=== PATIENT | male | born 1940 | race Caucasian/White ===

== ENCOUNTER 2019-04-11 06:15 | Day surgery (SDC) | payer MEDICARE ==
[2019-04-09 09:27] VITALS: BMI 32.8
[2019-04-11] MEDS ORDERED: Fentanyl 100 MCG/2 ML VIAL ONE ×3 (06:54→10:19)
[2019-04-11] MEDS ORDERED: HYDROcodone/Acetaminophen 5/325 mg Tablet ONE ×6 (11:57→12:32)
--- NOTE | 2019-04-11 12:53 | OP ---
DATE OF PROCEDURE: 04/11/2019 UPPER LEATHER CUTTER: Irena Carroll PA-C PROCEDURE PERFORMED: L4-L5 laminectomy and left L4-L5 diskectomy. DESCRIPTION OF PROCEDURE: The patient was brought to the operating room and intubated. He was rolled in the prone position on gel-filled chest rolls. An incision was made exposing L4 and L5 and the level was confirmed by x-ray. We performed complete L5 and inferior L4 laminectomy and completely decompressing the neural elements. Beneath left L4-L5, we did identify some extruded disk material that was also removed and complete decompression was secured. The wound was then extensively irrigated and MAC hemostasis was secured. Vancomycin powder was applied and the wound was closed in anatomic layers. Job ID: [id number]
[2019-04-11] MEDS ORDERED: Glycopyrrolate 0.2 MG/ML 5 ML SYRINGE ONE (16:34)
[2019-04-11] MEDS ORDERED: Metoclopramide HCl 10 MG/2 ML VIAL ONE (16:34)
[2019-04-11] MEDS ORDERED: Lidocaine 2% PF 5 ML VIAL ONE (16:34)
[2019-04-11] MEDS ORDERED: Rocuronium Bromide 10 MG/ML (10ML VIAL) ONE (16:34)
[2019-04-11] MEDS ORDERED: Ondansetron PF 4 MG/2 ML Vial ONE (16:34)
[2019-04-11] MEDS ORDERED: Dexamethasone 20 MG/5 ML VIAL ONE (16:34)
[2019-04-11] MEDS ORDERED: PROPOFOL 200 MG/20 ML VIAL ONE (16:34)
== END 2019-04-11 13:20 | disposition home or self-care (01) ==
LOC: SDC 06:15
PROVIDERS: ATTEND Neurological Surgery
PROC: 01NB0ZZ Release Lumbar Nerve, Open Approach (ICD-10-PCS; principal; 2019-04-11)
PROC: 0ST20ZZ Resection of Lumbar Vertebral Disc, Open Approach (ICD-10-PCS; 2019-04-11)
DX: M48.062 Spinal stenosis, lumbar region with neurogenic claudication (principal)
CPT/HCPCS: 76000; J0131; J0690; J3010; J3370

== ENCOUNTER 2024-07-15 13:45 | Outpatient (CLI) | payer MEDICARE | END 2024-07-15 13:46 | disposition home or self-care (01) | LOC: RAD 13:45 | PROVIDERS: ATTEND Neurological Surgery | DX: M48.062 Spinal stenosis, lumbar region with neurogenic claudication (principal); M47.816 Spondylosis without myelopathy or radiculopathy, lumbar region; M41.9 Scoliosis, unspecified | CPT/HCPCS: 72100 ==

== ENCOUNTER 2024-08-25 08:38 | Outpatient (CLI) | payer MEDICARE ==
[2024-08-25 09:56] LABS: #Basophils Less than 0.03 10x3/uL (0.0-0.2); %Basophils 0.5 % (0.0-1.0); %Eosinophils 3.7 % (0.0-10.0); %Lymphocytes 38.1 % (21.0-51.0); %Monocytes 9.3 % (0.0-10.0); %Neutrophils 48.2 % (42.0-75.0); Hematocrit 40.5 % (42.0-52.0); Hemoglobin 13.5 g/dL (14.0-18.0); Mean Corpuscular HGB CONC 33.3 g/dL (32.0-36.0); Mean Corpuscular Hemoglobin 30.1 pg (27.0-31.0); Mean Corpuscular Volume 90.2 fL (78.0-98.0); Mean Platelet Volume 9.7 fL (7.4-10.4); Platelet Count 142 10x3/uL (130-400); RBC Distribution Width 14.6 % (11.5-14.5); Red Blood Cell (RBC) Count 4.49 mill/uL (4.70-6.10)
[2024-08-25 10:23] LABS: Anion Gap 15 mmol/L (10-20); BUN (Urea Nitrogen) 19 mg/dL (8.4-25.7); Calc. Creatinine Clearance 0 mL/min (70-130); Calcium 9.4 mg/dL (7.8-10.44); Carbon Dioxide 24 mmol/L (23-31); Chloride 106 mmol/L (98-107); Estimated GFR 69; Glucose 240 mg/dL (83-110); Potassium 4.3 mmol/L (3.5-5.1); Sodium 141 mmol/L (136-145)
== END 2024-08-25 08:39 | disposition home or self-care (01) ==
LOC: LABBT 08:38
PROVIDERS: ATTEND Neurological Surgery
DX: Z01.812 Encounter for preprocedural laboratory examination (principal); M48.062 Spinal stenosis, lumbar region with neurogenic claudication
CPT/HCPCS: 80048; 85025

== ENCOUNTER 2024-09-01 08:35 | Inpatient (IN) | payer MEDICARE ==
[2024-08-25 08:56] VITALS: BMI 32.8
[2024-09-01] MEDS ORDERED: PROPOFOL 20 ML ONE (09:43)
[2024-09-01] MEDS ORDERED: fentaNYL PF 100 MCG/2 ML SYRINGE ONE (09:43)
[2024-09-01] MEDS ORDERED: Ketamine In 0.9 % NaCl 50 MG/5 ML SYRINGE ONE (09:45)
[2024-09-01] MEDS ORDERED: Vancomycin 1 GM VIAL ONE (10:06)
[2024-09-01] MEDS ORDERED: Ondansetron PF 4 MG/2 ML Vial IVP PRN (10:16)
[2024-09-01] MEDS ORDERED: Acetaminophen/Codeine 30-300mg Tablet PO PRN (10:16)
[2024-09-01] MEDS ORDERED: Acetaminophen 325 MG TAB PO PRN (10:16)
[2024-09-01] MEDS ORDERED: Cyclobenzaprine 10 MG TAB PO PRN (10:16)
[2024-09-01] MEDS ORDERED: Morphine 2 MG/ML VIAL SLOW IVP PRN (10:16)
[2024-09-01] MEDS ORDERED: diphenhydrAMINE 50 MG/ML VIAL IVP PRN (10:16)
[2024-09-01] MEDS ORDERED: Milk Of Magnesia 30 ML UDCUP PO PRN (10:16)
[2024-09-01] MEDS ORDERED: traMADol HCl 50 MG TAB PO PRN ×2 (10:16)
[2024-09-01] MEDS ORDERED: CEFAZOLIN 2 GM VIAL ONE (10:24)
[2024-09-01] MEDS ORDERED: Rocuronium Bromide 10 MG/ML (10ML VIAL) ONE (11:06)
[2024-09-01] MEDS ORDERED: Lidocaine 1% PF 5 ML VIAL ONE (11:06)
[2024-09-01] MEDS ORDERED: PHENYLEPHRINE-NS 100 MCG/ML 10 ML SYRINGE ONE (11:06)
[2024-09-01] MEDS ORDERED: Ondansetron PF 4 MG/2 ML Vial ONE (11:25)
[2024-09-01] MEDS ORDERED: Dexamethasone 20 MG/5 ML VIAL ONE (11:25)
[2024-09-01] MEDS ORDERED: Glycopyrrolate 0.2 MG/ML 5 ML SYRINGE ONE (11:39)
[2024-09-01] MEDS ORDERED: SUGAMMADEX SODIUM 200 MG/2 ML VIAL ONE (12:09)
[2024-09-01] MEDS ORDERED: fentaNYL 50 mcg/mL 1 mL Vial ONE ×3 (12:53→13:38)
[2024-09-01] MEDS ORDERED: HYDROmorphone 0.5 MG/0.5 ML SYRINGE ONE (13:58)
[2024-09-01] MEDS ORDERED: Gabapentin 300 MG CAP PO SCH (15:00)
[2024-09-01] MEDS: Sodium Chloride 0.9% 1,000 ML IV SCH (15:26)
[2024-09-01] MEDS: Gabapentin 300 MG CAP PO SCH (16:35)
[2024-09-01] MEDS: Gabapentin 100 MG CAP PO SCH (16:36)
[2024-09-01] MEDS: Acetaminophen/Codeine 30-300mg Tablet PO PRN (16:36)
[2024-09-01] MEDS: CEFAZOLIN 2 GM in Sodium Chloride 0.9% 100 ML IVPB SCH (17:38)
[2024-09-01] MEDS: Furosemide 20 MG TAB PO SCH (21:11)
[2024-09-01] MEDS: Sacubitril 49 MG/Valsartan 51 MG TABLET PO SCH (21:12)
[2024-09-01] MEDS: Pramipexole Di-HCl 1 MG TAB PO SCH (21:12)
[2024-09-02] MEDS: Levothyroxine Sodium 50 MCG TAB PO SCH (05:50)
[2024-09-02] MEDS: PARoxetine 20 MG TAB PO SCH (08:36)
[2024-09-02] MEDS: Carvedilol 3.125 MG TAB PO SCH (08:36)
[2024-09-02] MEDS: Potassium Chloride 10 MEQ TAB PO SCH (08:38)
[2024-09-02] MEDS: metFORMIN 500 MG TAB PO SCH (08:38)
[2024-09-02] MEDS: Empagliflozin 10 MG TAB PO SCH (08:52)
[2024-09-02] MEDS: FLU (Fluad Triv) TS24-25 (65UP)/MF59C/PF 45 MCG/0.5 ML Syringe IM ONE (18:50)
[2024-09-02 21:26] LABS: ALT (SGPT) 20 U/L (8-55); AST (SGOT) 27 U/L (5-34); Albumin 3.7 g/dL (3.4-4.8); Alkaline Phosphatase 67 U/L (40-110); Anion Gap 14 mmol/L (10-20); BUN (Urea Nitrogen) 25 mg/dL (8.4-25.7); Bilirubin, Total 0.8 mg/dL (0.2-1.2); Calc. Creatinine Clearance 82 mL/min (70-130); Calcium 8.7 mg/dL (7.8-10.44); Carbon Dioxide 23 mmol/L (23-31); Chloride 105 mmol/L (98-107); Estimated GFR 70; Globulin 3.3 g/dL (2.4-3.5); Glucose 245 mg/dL (83-110); Magnesium 2.3 mg/dL (1.6-2.6); Potassium 3.9 mmol/L (3.5-5.1); Sodium 138 mmol/L (136-145)
[2024-09-02] MEDS ORDERED: Senokot S 8.6-50 MG TAB PO PRN (22:27)
[2024-09-02] MEDS ORDERED: Sodium Chloride 0.9% 500 ML IV SCH (22:30)
[2024-09-03 05:11] LABS: #Basophils Less than 0.03 10x3/uL (0.0-0.2); %Basophils 0.3 % (0.0-1.0); %Eosinophils 3.3 % (0.0-10.0); %Lymphocytes 24.9 % (21.0-51.0); %Monocytes 7.6 % (0.0-10.0); %Neutrophils 63.6 % (42.0-75.0); Hematocrit 35.3 % (42.0-52.0); Hemoglobin 11.8 g/dL (14.0-18.0); Mean Corpuscular HGB CONC 33.4 g/dL (32.0-36.0); Mean Corpuscular Hemoglobin 30.4 pg (27.0-31.0); Mean Platelet Volume 9.9 fL (7.4-10.4); Platelet Count 125 10x3/uL (130-400); Red Blood Cell (RBC) Count 3.88 mill/uL (4.70-6.10)
[2024-09-03] MEDS ORDERED: Insulin Regular, Human 100 UNIT/ML 10 ML VIAL SC PRN (08:20)
[2024-09-03] MEDS ORDERED: Dextrose 5% in Water 1,000 ML IV PRN (08:20)
[2024-09-03] MEDS ORDERED: Glucagon 1 MG/ML KIT IM PRN (08:20)
[2024-09-03] MEDS ORDERED: Dextrose 50% Abboject 50 ML SYRINGE SLOW IVP PRN (08:20)
[2024-09-03] MEDS: PARoxetine 20 MG TAB PO SCH (09:01)
[2024-09-03] MEDS: Polyethylene Glycol 3350 17 GM Packet PO SCH (09:02)
[2024-09-03] MEDS: DorzolamidE/Timolol 2%/0.5% Ophth Soln 10 ml Bottle R EYE SCH (09:03)
[2024-09-03] MEDS: Mag-Al 1200 mg/1200 mg/30 ML UDCUP PO PRN (13:33)
[2024-09-03] MEDS: Insulin Regular, Human 100 UNIT/ML 10 ML VIAL SC PRN (13:35)
[2024-09-03] MEDS: Pramipexole Di-HCl 1 MG TAB PO SCH (16:11)
[2024-09-03] MEDS: metFORMIN 500 MG TAB PO SCH (17:30)
[2024-09-03] MEDS: Insulin Glargine 30 UNITS/0.3 ML VIAL SC SCH (17:30)
[2024-09-03] MEDS: Cholecalciferol 1,000 UNITS (25 MCG) TAB PO SCH (20:53)
[2024-09-03] MEDS: Cyanocobalamin (Vitamin B-12) 1,000 MCG TAB PO SCH (20:54)
[2024-09-04] MEDS: CEFAZOLIN 2 GM in Sodium Chloride 0.9% 100 ML IVPB SCH (05:27)
[2024-09-04] MEDS ORDERED: Cefepime 2 GM in Sodium Chloride 0.9% 100 ML IVPB SCH (06:00)
[2024-09-04] MEDS: Carvedilol 3.125 MG TAB PO SCH (08:37)
[2024-09-04 10:24] VITALS: BP 124/75; TEMP 97.3
== END 2024-09-04 12:30 | disposition home or self-care (01) | DRG 519 ==
LOC: SDC 08:35 → SURG B 14:52 → OBSVTOIN 09-03 08:28
PROVIDERS: ADMIT Neurological Surgery; ATTEND Neurological Surgery
PROC: 01NB0ZZ Release Lumbar Nerve, Open Approach (ICD-10-PCS; principal; 2024-09-01)
PROC: 00NY0ZZ Release Lumbar Spinal Cord, Open Approach (ICD-10-PCS; 2024-09-01)
PROC: 3E02340 Introduction of Influenza Vaccine into Muscle, Percutaneous Approach (ICD-10-PCS; 2024-09-01)
DX: M48.062 Spinal stenosis, lumbar region with neurogenic claudication (principal); I13.0 Hypertensive heart and chronic kidney disease with heart failure and stage 1 through stage 4 chronic kidney disease, or unspecified chronic kidney disease; E78.5 Hyperlipidemia, unspecified; I25.10 Atherosclerotic heart disease of native coronary artery without angina pectoris; I25.5 Ischemic cardiomyopathy; E03.9 Hypothyroidism, unspecified; E11.22 Type 2 diabetes mellitus with diabetic chronic kidney disease; N18.2 Chronic kidney disease, stage 2 (mild); G25.81 Restless legs syndrome; D69.6 Thrombocytopenia, unspecified; I95.9 Hypotension, unspecified; I50.9 Heart failure, unspecified; Z95.5 Presence of coronary angioplasty implant and graft; Z95.0 Presence of cardiac pacemaker; Z95.1 Presence of aortocoronary bypass graft; Z99.89 Dependence on other enabling machines and devices; Z87.891 Personal history of nicotine dependence; Z79.82 Long term (current) use of aspirin; Z79.899 Other long term (current) drug therapy; Z23 Encounter for immunization
CPT/HCPCS: 36415; 36416; 80053; 83735; 85025; C1713; J1100; J1815; J2405; J2704; J3010; J3370; J3490

== ENCOUNTER 2025-07-23 08:57 | Outpatient (CLI) | payer MEDICARE | END 2025-07-23 08:58 | disposition home or self-care (01) | LOC: RAD 08:57 | PROVIDERS: ATTEND Internal Medicine | DX: R06.00 Dyspnea, unspecified (principal) | CPT/HCPCS: 71046 ==